=== PATIENT | female | born 1970 | race African-American/Black ===

== ENCOUNTER → 2016-09-07 08:07 | Outpatient (CLI) | payer OTHER | END | disposition home or self-care (01) | LOC: AMB 08:07 | DX: M25.512 Pain in left shoulder (principal) ==

== ENCOUNTER 2017-10-07 16:10 | Outpatient (CLI) | payer OTHER | END 2017-10-07 20:03 | disposition home or self-care (01) | LOC: RAD 16:10 | DX: R09.89 Other specified symptoms and signs involving the circulatory and respiratory systems (principal); R22.1 Localized swelling, mass and lump, neck ==